=== PATIENT | female | born 1950 | race Caucasian/White ===

== ENCOUNTER → 2017-01-02 | Outpatient (CLI) | payer MEDICARE, BC ==
--- NOTE | 2017-01-02 15:13 | REP ---
MRI RIGHT SHOULDER: TECHNIQUE: Axial T2 fat sat, gradient echo, sagittal oblique T2 fat sat, coronal oblique T1, T2 fat sat. There is a full thickness partial tear at the anterior aspect of the supraspinatus tendon. There are moderate hypertrophic degenerative changes of the acromioclavicular joint. Acromion is type 2. Biceps tendon is within the bicipital groove with no tenosynovitis. There is no Hill-Sachs deformity. No abnormal signal seen in the deltoid. Linear increased signal through the superior labrum suggests a tear of this portion of the labrum at the biceps labral complex. No other labral tear is seen. Tiny subchondral cysts are seen in the humeral head. There is mild subchondral marrow edema along the acromioclavicular joint. Tiny amount of fluid is seen in the subacromial subdeltoid bursae. No paralabral cyst is seen. IMPRESSION: Full thickness partial tear anterior supraspinatus tendon. Moderate hypertrophic degenerative changes acromioclavicular joint. I suspect a tear of the anterior aspect of the superior labrum near the biceps labral complex. Tiny amount of fluid in subacromial subdeltoid bursae. Signed by Brian Fay MD 01/02/2017 04:21 P
== END ==
LOC: M PLARAD 13:39
PROVIDERS: ATTEND Orthopaedic Surgery Sports Medicine
DX: M75.41 Impingement syndrome of right shoulder (principal)

== ENCOUNTER → 2017-11-23 | Outpatient (CLI) | payer MEDICARE, BC | LOC: M RAD 10:44 | DX: M43.16 Spondylolisthesis, lumbar region (principal); M51.26 Other intervertebral disc displacement, lumbar region; M48.061 Spinal stenosis, lumbar region without neurogenic claudication; N28.1 Cyst of kidney, acquired | CPT/HCPCS: 72148 ==

== ENCOUNTER → 2017-12-23 | Outpatient (CLI) | payer MEDICARE, BC | LOC: M RAD 14:45 | DX: R51 Headache (principal); H53.8 Other visual disturbances | CPT/HCPCS: 70551 ==

== ENCOUNTER → 2018-04-07 | Outpatient (CLI) | payer MEDICARE, BC ==
--- NOTE | 2018-04-08 09:44 | REP ---
MRI LEFT SHOULDER WITHOUT CONTRAST: 04/07/2018. CLINICAL HISTORY: Left shoulder impingement syndrome, rotator cuff tear. Please evaluate. Patient states lifts heavy objects with increased pain and limited range of motion. TECHNIQUE: Coronal T1, axial 3D WATS gradient-echo, and fat-suppressed T2 coronal, sagittal, and axial sequences. FINDINGS: The AC joint does show hypertrophic spurring indenting musculotendinous junction of the rotator cuff. There is also a peripheral acromial spur. That spur contributes to impinge at the musculotendinous junction rotator cuff. There is a full-thickness tear of the central portion of the supraspinatus tendon just above its insertional footprint. The tendon is retracted almost 2 cm. There are a few fibers posteriorly and anteriorly. There is significant atrophy of the supraspinatus muscle developing. The AC joint shows hypertrophic spurring also indenting musculotendinous junction of rotator cuff. There is a small amount of subacromial-subdeltoid bursal fluid. There is also a small glenohumeral joint effusion. There is mild superior subluxation of the humeral head and the glenoid and slight narrowing of the acromiohumeral distance due to the torn supraspinatus. Subscapularis shows some thickening of its fibers without a definite tear and with no atrophy of its muscle. There is subacromial bursal fluid. The teres minor tendon and muscle are grossly intact. The infraspinatus tendon shows significant high-grade tear and atrophy. There is fluid deep to the fascial layer surrounding the infraspinatus with that muscle severely atrophied. Fluid is hyperintense on T2, hypointense on T1, this does not represent hemorrhage. Only a small glenohumeral joint effusion. Superior labrum is degenerated. Biceps tendon is seated in the bicipital groove. The proximal course of the biceps to the labrum is poorly depicted, and I suspect a significant injury. That portion of the intra-articular tendon just above the bicipital groove is intact. Coracoclavicular ligaments are intact. The coracohumeral ligaments are preserved. Fluid in the axillary recess from joint effusion. I suspect significant labral injury, but detail is poor due to a small amount of joint effusion and some motion artifact. IMPRESSION: 1. Partial tear of full-thickness of the central to anterior portion of the supraspinatus tendon with a gap of almost 2 cm and retraction of that portion of the tendon is developing significant atrophy of the muscle belly of the supraspinatus. This is related to impingement by the peripheral acromial spur at the point of tear and also proximal to it at the musculotendinous junction is an indentation from the AC joint causing impingement. Posterior fibers are intact, but there is also significant injury to the infraspinatus tendon, atrophy of that tendon, and significant fluid collection in the muscle belly. No hemorrhage. 2. Subscapularis tendinopathy-tendinosis without a full-thickness tear or retraction, and the teres minor tendon and muscle grossly intact. 3. Biceps tendon seated in its groove, and the proximal course of the tendon and its interarticular portion is poorly depicted. I suspect significant biceps labral junction injury. 4. 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 Small joint effusion. Suspected severe labral injury, but poorly depicted due to limited fluid in the glenohumeral joint and motion artifact. 5. Coracoclavicular and coracohumeral ligaments intact. Electronically Signed by Vamshi Buenrostro MD 04/08/2018 11:30 A
== END ==
LOC: M RAD 10:29
PROVIDERS: ATTEND Physician Assistant Surgical
DX: M75.42 Impingement syndrome of left shoulder (principal)